=== PATIENT | male | born 1950 | race Two or more races ===

== ENCOUNTER 2017-06-27 05:00 | Day surgery (SDC) | payer OTHER ==
[~2017-06-27 05:00] MED LIST: ATORVASTATIN CA20 MG PO; FORTAMET1000 MG PO; LISINOPRIL-HCT1 EAC1 PO; [UNRECOGNIZED DRUG - OTHER] PO
[2017-06-27] MEDS ORDERED: TRAM1TAB98 PO (08:40)
[2017-06-27] MEDS ORDERED: Septra Ds Tablet PO (08:40)
== END 2017-06-27 13:35 | disposition home or self-care (01) ==
LOC: CIR.AMB 05:00 → EDBD 11:00 → CIR.AMB 11:00
DX: M23.321 Other meniscus derangements, posterior horn of medial meniscus, right knee (principal); M17.11 Unilateral primary osteoarthritis, right knee